=== PATIENT | female | born 1960 | race Caucasian/White ===

== ENCOUNTER 2019-12-10 20:42 | Emergency (ER) | payer BC, MEDICARE ==
[~2019-12-10] VITALS: Ht 160 cm; Wt 71.2 kg
--- NOTE | 2019-12-10 20:46 | NUR ---
ER at bedside examining patient.
--- NOTE | 2019-12-10 20:46 | NUR ---
Placed in room 1 . Placed on personnel monitor, blood pressure machine and pulse oximeter. To gown for exam. Side rails up. Report given to GUERO CORTES.
[2019-12-10 20:47] VITALS: BP_SYST 137
--- NOTE | 2019-12-10 20:50 | NUR ---
Pt brought in by [facility]. Pt states she was walking down [place] earlier today at approx 2030hrs, she felt substernal chest pain and pressure. Pt states she felt "like someone was squeezing my heart". Pt states she was given 0.4 ntg and 324 ASA in the field. Pt states that she now is pain free, denies any nausea, chest pain, diarrhea, shortness of breath, any other medical complaint at this time. Pt resting in ER bed comfortably at this time. No acute distress, no sob, no diaphoresis
[2019-12-10 21:28] LABS: BASOPHILS % (AUTO) 0.3 % (0.0-2.0); EOSINOPHILS # (AUTO) 0.1 K/uL (0.0-0.4); EOSINOPHILS % (AUTO) 1.6 % (0.0-4.0); HEMATOCRIT 41.6 % (36-48); HEMOGLOBIN 13.9 g/dL (12.0-16.0); LYMPHOCYTES # (AUTO) 1.6 K/uL (1.0-5.5); LYMPHOCYTES % (AUTO) 22.5 % (20.5-51.5); MEAN CORPUSCULAR HEMOGLOBIN 29 pg (27-31); MEAN CORPUSCULAR HGB CONC 33 % (32-36); MEAN CORPUSCULAR VOLUME 88 fL (79.0-98.0); MONOCYTES # (AUTO) 0.4 K/uL (0.0-1.0); MONOCYTES % (AUTO) 5.8 % (1.7-9.3); NEUTROPHILS # (AUTO) 4.9 K/uL (1.8-7.7); NEUTROPHILS % (AUTO) 69.8 % (40.0-70.0); PLATELET COUNT (AUTO) 212 K/uL (130-430); RED BLOOD CELL COUNT(AUTO) 4.73 MIL/uL (4.2-6.2); RED CELL DISTRIBUTION WIDTH 13.4 % (9.0-15.0)
[2019-12-10 21:30] LABS: CALCIUM 8.3 mg/dL (8.4-11.0); CREATININE 0.58 mg/dL (0.55-1.30); POTASSIUM 3.9 mmol/L (3.5-5.1)
--- NOTE | 2019-12-10 21:30 | NUR ---
Pt resting in ed bed comfortably. no distress.
[2019-12-10 21:32] LABS: PROTHROMBIN TIME 9.7 SECS (9.5-12.5)
[2019-12-10 21:35] LABS: ALBUMIN 3.7 g/dL (3.4-4.8); TOTAL BILIRUBIN 0.4 mg/dL (0.0-1.0)
[2019-12-10 22:59] LABS: BILIRUBIN,URINE NEGATIVE (NEGATIVE); BLOOD, URINE NEGATIVE (NEGATIVE); CLARITY/URINE CLEAR (CLEAR); COLOR,URINE YELLOW (YELLOW); GLUCOSE,URINE NEGATIVE (NEGATIVE); KETONES,URINE TRACE (NEGATIVE); LEUKOCYTE ESTERASE ,URINE 3+ (NEGATIVE); NITRITE, URINE NEGATIVE (NEGATIVE); PH,URINE 6.5 (5.0-8.0); PROTEIN URINE NEGATIVE (NEGATIVE)
--- NOTE | 2019-12-10 23:00 | NUR ---
Pt tolerated IV antibiotics well, no s/s of adverse reactions.
[2019-12-10 23:10] LABS: BACTERIA,URINE FEW /HPF (None Seen); RBC,URINE 0-3 /HPF (0-3); WBC,URINE 20-50 /HPF (0-3)
[2019-12-10] MEDS ORDERED: cefTRIAXone 1 GM in D5W 50 ML IV ONE (23:30)
[2019-12-10] MEDS ORDERED: cefTRIAXone 1 GM VIAL ONE (23:44)
--- NOTE | 2019-12-11 00:13 | NUR ---
Bedside speaking with patient, Performing Exam and interview.
[2019-12-11] MEDS ORDERED: MAG-AL HYDROX/SIMETH 30 ML UDC PO ONE (00:15)
[2019-12-11] MEDS ORDERED: ASPIRIN 81 MG TABLET(ECOTRIN) PO ONE (00:15)
[2019-12-11] MEDS ORDERED: LORazepam 2 MG/ML VIAL IVP PRN (00:15)
[2019-12-11] MEDS ORDERED: MAG-AL HYDROX/SIMETH 30 ML UDC PO PRN (00:15)
[2019-12-11] MEDS ORDERED: ONDANSETRON HCL 4 MG/2 ML VIAL IVP PRN (00:15)
[2019-12-11] MEDS ORDERED: FAMOTIDINE PF 20 MG/2 ML VIAL IVP ONE (00:15)
[2019-12-11] MEDS ORDERED: NACL 0.9% 1,000 ML IV ONE (00:30)
[2019-12-11] MEDS ORDERED: NITROGLYCERIN 0.4 MG TAB.SUBL SL PRN (00:30)
[2019-12-11] MEDS ORDERED: CIPROFLOXACIN HCL 500 MG TABLET PO SCH (00:30)
--- NOTE | 2019-12-11 01:30 | NUR ---
Pt counseled by ED physician and staff on the dangers/risks of leaving AMA. Admitting MD Paged.
--- NOTE | 2019-12-11 01:30 | NUR ---
Pt resting in ED bed comfortably. Pt states that she doesnt feel she needs medications at this time. Refused Mylanta and other medications at this time. Pt refusing all medications. Pt states she would like to leave against medical advice.
--- NOTE | 2019-12-11 02:30 | NUR ---
Patient does not wish to proceed with medical care recommended by . Patient given information related to possible complications, up to and including , which could occur as a result of leaving hospital at this time. Patient verbalizes understanding of risks involved leaving against medical advice. Patient has signed AMA form.
--- NOTE | 2019-12-11 02:30 | NUR ---
Pt states she would be leaving AMA. IV removed. Stated she did not want to wait to talk to provider.
[2019-12-11] MEDS ORDERED: ASPIRIN 81 MG TABLET(ECOTRIN) PO SCH (09:00)
[2019-12-11] MEDS ORDERED: FAMOTIDINE PF 20 MG/2 ML VIAL IVP SCH (09:00)
[2019-12-11] MEDS ORDERED: COLCHICINE 0.6 MG TABLET PO ONE (15:30)
[2019-12-11] MEDS ORDERED: COLCHICINE 0.6 MG TABLET PO SCH (21:00)
[2019-12-11] MEDS ORDERED: cefTRIAXone 1 GM in D5W 50 ML IV SCH (21:00)
== END 2019-12-11 02:30 | disposition left against medical advice (07) ==
LOC: SED 20:42 → STU 12-11 00:05 → UNDOADMIN 12-11 00:05 → STU 12-11 02:30 → UNDODISIN 12-11 02:30
DX: R07.89 Other chest pain (principal); N39.0 Urinary tract infection, site not specified
CPT/HCPCS: 36415; 71045; 80053; 81000; 82550; 83880; 84484; 85025; 85379; 85610; 87086; 93005; 96365; 99285; J0696; 96360; G0378

== ENCOUNTER 2021-07-25 18:10 | Emergency (ER) | payer BC, SELFPAY ==
[~2021-07-25] VITALS: Ht 160 cm; Wt 74.8 kg
[2021-07-25 18:10] VITALS: BP_SYST 145
--- NOTE | 2021-07-25 18:15 | NUR ---
DR LAZARO OUT TO TRIAGE ROOM EVALUATING PT.
--- NOTE | 2021-07-25 18:51 | NUR ---
PT COMES TO ER WITH C/O LOWER BACK PAIN X 3 DAYS AFTER PICKING UP AND TRANSFERRING PATIENT TO BED. SHE IS A CAREGIVER. DENIES HEMATURIA/DYSURIA.
--- NOTE | 2021-07-25 19:00 | NUR ---
ENID Ruffin at bedside examining patient.
--- NOTE | 2021-07-25 19:32 | NUR ---
Patient transported to radiology via walking, accompanied by staff.
--- NOTE | 2021-07-25 19:59 | NUR ---
Returned from radiology, back to [facility].
--- NOTE | 2021-07-25 20:12 | NUR ---
Patient AAO x4, c/o lower back pain radiating bilaterally. Patient states 10/10 pain. Patient awaiting imaging results. Breathing even and unlabored, no signs of acute distress noted. Will continue to monitor.
[2021-07-25] MEDS ORDERED: predniSONE 20 MG TABLET PO ONE (21:30)
[2021-07-25] MEDS ORDERED: traMADol HCL HCL 50 MG TABLET (ULTRAM) PO ONE (21:30)
[2021-07-25] MEDS ORDERED: PRED20TA PO (21:32)
[2021-07-25] MEDS ORDERED: TRAM50TA2 PO (21:32)
[2021-07-25] MEDS ORDERED: CYCL10TA24 PO (21:32)
[2021-07-25 21:52] VITALS: BP_SYST 136
--- NOTE | 2021-07-25 21:52 | NUR ---
Patient given written and verbal discharge instructions and verbalizes understanding. ER MD discussed with patient the results and treatment provided. Patient in stable condition. ID arm band removed. no IV Rx of tramadol, prendisone, flexiril given. Patient educated on pain management and to follow up with PMD. Pain Scale 6/10. Opportunity for questions provided and answered. Medication side effect fact sheet provided.
== END 2021-07-25 21:52 | disposition home or self-care (01) ==
LOC: SED 18:10
DX: M48.54XA Collapsed vertebra, not elsewhere classified, thoracic region, initial encounter for fracture (principal); M51.24 Other intervertebral disc displacement, thoracic region; X50.3XXA Overexertion from repetitive movements, initial encounter; Y93.89 Activity, other specified; Y92.89 Other specified places as the place of occurrence of the external cause; Y99.8 Other external cause status
CPT/HCPCS: 72080; 72128; 76376; 99284; J7512